=== PATIENT | female | born 1990 | race Caucasian/White ===

== ENCOUNTER 2018-08-14 20:53 | Emergency (ER) | payer SELFPAY ==
[~2018-08-14] VITALS: Ht 149.9 cm; Wt 79.5 kg
[2018-08-14] MEDS ORDERED: DiphenhydrAMINE HCL 50 MG/ML VIAL IVP ONE (21:30)
[2018-08-14] MEDS ORDERED: MethylPREDNISolone SOD SUCC 125 MG/2 ML VIAL IVP ONE (21:30)
[2018-08-14] MEDS ORDERED: ALBUTEROL SULFATE 2.5 MG/0.5 ML NEB SOLUTION NEB ONE (21:30)
[2018-08-14] MEDS ORDERED: IPRATROPIUM BROMIDE 0.5 MG/2.5 ML NEB SOLUTION NEB ONE (21:30)
[2018-08-14 23:00] VITALS: BP 114/65
== END 2018-08-14 23:30 | disposition home or self-care (01) ==
LOC: EMS 20:54
DX: T78.40XA Allergy, unspecified, initial encounter (principal); X58.XXXA Exposure to other specified factors, initial encounter
CPT/HCPCS: 71045; 81025; 94640; 96374; 96375; 99291; J1200; J2930; 94060